=== PATIENT | female | born 1995 | race Caucasian/White ===

== ENCOUNTER 2016-11-18 03:26 | Inpatient (IN) | payer OTHER ==
--- NOTE | ~2016-11-18 | HP ---
Unit #: [id number] #: [id number] Patient: KATHLEEN SWAN [id number] [place] [address] [id number] MR#: [id number] NAME: KATHLEEN SWAN ROOM: [id number] Age: 21 Sex: F Admission Date: 11/18/2016 : 1995 Attending Physician: Murali Meléndez M.D. Admitting Physician: Murali Meléndez M.D. Primary Care Physician: Chelsi Conley M.D. HISTORY AND PHYSICAL Kathleen is a 21 year old who was admitted and discharged within the first 24 hours. She was not seen for an H and P. Dictated by... Gavi Apple P.A.-C. for [facility] Alcala/rebeca TD: 11/18/2016 22:25 JOB #: [id number] HISTORY AND PHYSICAL Page 1 of 1 X Gavi Apple HISTORY AND PHYSICAL
[~2016-11-18 03:26] MED LIST: AMOXICILLIN875 MG PO; DICLEGIS DR 101 EACH PO; NO MEDICATIONS; PRENA1 CHEW TA1.4 MG PO
== END 2016-11-18 12:30 | disposition home or self-care (01) | DRG 881 ==
LOC: P2L 03:26
DX: F32.9 Major depressive disorder, single episode, unspecified (principal); F41.9 Anxiety disorder, unspecified; Z33.1 Pregnant state, incidental

== ENCOUNTER 2016-12-22 22:48 | Emergency (ER) | payer OTHER ==
[2016-12-22] MEDS ORDERED: PRENATAL VITAM1 EAC1 (23:06)
[2016-12-23 00:50] LABS: INFLUENZA A NEG (NEG); INFLUENZA B NEG (NEG)
== END 2016-12-23 01:58 | disposition home or self-care (01) ==
LOC: SED 22:48
PROVIDERS: Emergency Medicine
DX: O21.9 Vomiting of pregnancy, unspecified (principal); O99.511 Diseases of the respiratory system complicating pregnancy, first trimester; O99.331 Smoking (tobacco) complicating pregnancy, first trimester; J01.00 Acute maxillary sinusitis, unspecified; F17.210 Nicotine dependence, cigarettes, uncomplicated
CPT/HCPCS: 87651; 87804; 99283